=== PATIENT | female | born 1955 | race Caucasian/White ===

== ENCOUNTER 2016-05-16 19:22 | Emergency (ER) | payer OTHER ==
--- NOTE | ~2016-05-16 | EKG ---
PATIENT: FRANCISCO ROBERT UNIT #: [id number] Ventricular Rate: 138 BPM Atrial Rate: 138 BPM P-R Interval: 142 ms QRS Duration: 116 ms Q-T Interval: 296 ms QTC Calculation(Bezet): 448 ms P [place]: 63 degrees Calculated R [place]: 40 degrees Calculated T [place]: 36 degrees Diagnosis Line: Sinus tachycardia with Premature atrial complexes Diagnosis Line: Right bundle branch block with repolarization Diagnosis Line: abnormality Diagnosis Line: Abnormal ECG Diagnosis Line: When compared with ECG of 23-MAY-2012 17:52, Diagnosis Line: Premature atrial complexes are now Present Diagnosis Line: Vent. rate has increased BY 55 BPM Diagnosis Line: QRS duration has decreased Diagnosis Line: Minimal criteria for Inferior infarct are no Diagnosis Line: longer Present Diagnosis Line: T wave inversion now evident in Anterior leads Diagnosis Line: Confirmed by DEVI STOVER MD ([id number]) on 05/27/2016 Diagnosis Line: 7:56:49 PM INTERPRETING MD: JOLANTA PINO
--- NOTE | ~2016-05-16 | CT2 ---
[facility]. [place] A Service of [facility] & [facility] RADIOLOGY TEXT RESULTS PATIENT: FRANCISCO ROBERT LOCATION: SED : 55 UNIT #: [id number] AGE: [address]: Lance Drew MD SEX: F ORDER DR: [id number] [address] [address] [id number] E MR#: [id number] #: [id number] NAME: FRANCISCO ROBERT : 1955 SEX: F STUDY DATE/TIME: 05/16/2016 21:31 UNIT: SED ROOM: STUDY DESCRIPTION: CT Abd and Pelv W Cont Attending Physician: Lance Drew M.D. Ordering Physician: Lance Drew M.D. Primary Care Physician: Princess Cruz M.D. MEDICAL IMAGING REPORT This report is preliminary unless electronic signature is present. EXAM CT abdomen and pelvis, 05/16/1916. HISTORY fever, vomiting, generalized pain onset today. TECHNIQUE This ct exam was performed with one or more of the following radiation dose reduction techniques: automatic exposure control, adjustment of ma and/or kv according to patient size, and iterative reconstruction. CT abdomen and pelvis performed with intravenous administration of 100 mL Isovue 370. COMPARISON STUDIES Noncontrast enhanced examination 05/23/2012. FINDINGS The lung bases are clear. Mild cardiac enlargement. Stable. Fatty infiltration of the liver stable. Liver is mildly enlarged measuring 19.3 cm in craniocaudal extent not significantly changed from prior study. No focal parenchymal abnormalities seen. Post cholecystectomy with no biliary ductal obstruction. Spleen, pancreas, left adrenal gland unremarkable. 1.3 cm indeterminate nodule right adrenal body. Relatively low in visible low-density but not meeting CT criteria for adenoma. Appears larger than on the prior study. Best further evaluated with MRI or adrenal protocol CT. Kidneys and ureters unremarkable. Urinary bladder, uterus adnexal regions unremarkable. CT Pelvis: No inguinal adenopathy. No pelvic fluid collections. No pelvic adenopathy or retroperitoneal adenopathy. Small portal nodes are stable. Distal esophagus unremarkable. [facility] Service of [facility] & [facility] RADIOLOGY TEXT RESULTS PATIENT: FRANCISCO ROBERT LOCATION: SED : 55 UNIT #: [id number] AGE: [address]: Lance Drew MD SEX: F ORDER DR: fluid and food debris. Likely physiologic. Correlate with time course of ingestion. No small bowel dilatation. There is mild prominence of the distal small bowel wall without dilatation. There may be some mild mucosal enhancement. Correlate with any clinical concern for distal small bowel enteritis. This is a questionable finding. Weight should be given the clinical assessment. The appendix is normal. Colon shows uncomplicated sigmoid diverticulosis. Vascular structures unremarkable. There is a pump device implanted over the anterior inferior right flank. The catheter extends posteriorly. Catheter appears to be radiographically intact. It enters the spinal canal at the T12 - L1 level and extends cephalad. Cephalad termination not visualized. The bony structures show pronounced degenerative change at the L2 - L3 intervertebral disc level markedly different than in May 2012. There is disc space narrowing. Irregularity of the flanking L2 and L3 endplates, associated sclerotic change. Posterior disc osteophyte complex with mild mass effect on thecal sac. I do not see paraspinal fluid collection or inflammatory change of an acute appearance but the changes at L2 - L3 or marked and concerning for age indeterminant diskitis. Please correlate clinically. Consider assessment with MRI if the patient is a candidate. No other suspicious bony findings are seen. The patient has a subcutaneous soft tissue density nodule in the right inferior pelvic wall measuring about 1.4 cm in diameter not seen on prior examination. This may represent some form of inclusion cyst. In the appropriate clinical context it could reflect site of medicine administration. Correlate clinically. I see no associated inflammatory change, subcutaneous air or soft tissue defect. IMPRESSION 1. There is no small bowel dilatation or evidence of obstruction. There is questionable mild wall prominence in the distal ileum with some questionable mural enhancement. These findings are subtle but could be a reflection of mild distal ileitis. Correlate clinically. Weight should be given the clinical assessment. Remainder small bowel unremarkable. Appendix normal. Colon shows only uncomplicated sigmoid diverticulosis. 2. Abnormal appearance of the lumbar spine. Compared to May 2012, the patient has developed severe degenerative change at the L2 - L3 level with marked intervertebral disc space narrowing, endplate irregularity and subcortical bone sclerotic change. These findings are all new compared to 2013. See complete discussion above. The appearance is concerning for diskitis of unknown chronicity. Correlate with the patient's history and clinical examination. Consider assessment with MRI if the patient is a candidate. 3. Right lower quadrant pump device with intrathecal catheter entering spinal canal at T12-L1 level and extending cephalad. Termination not visualized. 4. Fatty infiltration of liver. Stable mild hepatomegaly. 5. Post cholecystectomy. 6. Pancreas, kidneys unremarkable. Uterus and adnexal regions unremarkable. [facility]. [place] A Service of [facility] RADIOLOGY TEXT RESULTS PATIENT: FRANCISCO ROBERT [place] [facility] [place] 55 [place]IT #: [id number] AGE: [address]: Lance Drew MD SEX: F ORDER DR: Dictated by... Bennie Cao M.D. THIS IS AN ELECTRONICALLY VERIFIED REPORT Bennie Cao M.D. at 05/19/2016 6:09 PM Rick TD: 05/17/2016 15:57 JOB #: [id number] MEDICAL IMAGING REPORT Page 1 of 1
--- NOTE | ~2016-05-16 | CR72 ---
[facility] A Service of [facility] RADIOLOGY TEXT RESULTS PATIENT: FRANCISCO ROBERT LOCATION: SED : 55 UNIT #: [id number] AGE: [address]: Lance Drew MD SEX: F ORDER DR: [id number] [place] [id number] E MR#: [id number] Acc #: [id number] NAME: FRANCISCO ROBERT : 1955 SEX: F STUDY DATE/TIME: 05/16/2016 19:38 UNIT: SED ROOM: STUDY DESCRIPTION: CR Chest Single View Portable Attending Physician: Lance Drew M.D. Ordering Physician: Lance Drew M.D. Primary Care Physician: Princess Cruz M.D. MEDICAL IMAGING REPORT This report is preliminary unless electronic signature is present. EXAM AP radiograph of the chest 05/16/2016 HISTORY Chest pain. Onset few hours. Prior history of COPD and high blood pressure. TECHNIQUE AP radiograph of the chest was presented. COMPARISON 09/01/2015. FINDINGS Mild cardiac enlargement. This appears slightly less pronounced than on prior study. Lungs well-inflated. No indication of acute pulmonary disease, pleural effusion, or pneumothorax. No suspicious nodule. The bony structures are unremarkable. Dictated by... Bennie Cao M.D. THIS IS AN ELECTRONICALLY VERIFIED REPORT Bennie Cao M.D. at 05/19/2016 6:09 PM SHANA/taylor TD: 05/17/2016 15:02 JOB #: [id number] MEDICAL IMAGING REPORT [facility] A Service [facility] RADIOLOGY TEXT RESULTS PATIENT: FRANCISCO ROBERT LOCATION: SED : 55 UNIT #: [id number] AGE: [address]: Lance Drew MD SEX: F ORDER DR: Page 1 of 1
[~2016-05-16 19:22] MED LIST: ALBUTEROL17 GM INH; ALPRAZOLAM; ALPRAZOLAM PO; AMBIEN; AMBIEN CR PO; AMBIEN CR12.5 MG/BL PO; AMBIEN PO; AMOXICILLIN500 M1 PO; APEDRA SQ; APIDRA (NF100 UNITS/ SUBQ; APIDRA SUBQ; ARIXTRA2.5 MG/0.5 INJ; ARTHROTEC 751 TAB.EC PO; AUGMENTIN PO; AVANDIA PO; BUMEX; BUMEX PO; BUMEX2 MG PO; BYSTOLIC2.5 MG PO; CELEBREX; CELEXA; CLEOCIN PO; DIET PILL PO; DILAUDID IVP; DURAGESIC; EFFEXOR PO; EFFEXOR XR PO; EFFEXOR-XR150 MG PO; FISH OIL 1,0001 CAP PO; FLEXERIL10 MG PO; GLUCOTROL XL; GLUCOTROL XL PO; HUMULIN 70/30 V10 ML; HUMULIN R100 U/ML; INDOMETHACIN75 MG PO; INSULIN; JANUVIA PO; K-DUR10 MEQ PO; K-DUR20 ME1 PO; KCL; KCL PO; KLOR-CON; LANOXIN; LANTUS100 U/M1 SQ; LANTUS100 U/M1 SUBQ; LANTUS100 U/ML SQ; LANTUS100 U/ML SUBQ; LANTUS100 UNITS/ SUBQ; LASIX; LASIX PO; LASIX20 MG PO; LEVAQUIN PO; LEXAPRO PO; LISINOPRIL; LORCET 10/650 T1 TAB; LORTAB 10/500 T1 TAB; LORTAB 10/500 T1 TAB PO; LOVAZA1 G PO; LUNESTA PO; LYRICA; LYRICA PO; MAG-OXIDE400 MG PO; MEDROL DOSEPAK4 MG PO; METFORMIN; METFORMIN PO; MICARDIS HCT 801 TAB PO; MICARDIS HCT PO; MS CONTIN PO; MYCARDIS PO; NAPROXEN 375 MG; NAPROXEN PO; NEURONTIN; NEURONTIN PO; NOVALOG SUBQ; NOVOLIN 70/30 V10 ML; NOVOLIN 70/30 V10 ML INJ; NOVOLIN 70/30 V10 ML SQ; NOVOLIN 70/30 V10 ML SUBQ; NOVOLIN R100 U/ML; NOVOLOG; NOVOLOG100 U/M1; NOVOLOG100 U/ML INJ; NOVOLOG100 U/ML SUBQ; NOVOLOG100 UNITS/ SUBQ; ORUDIS75 M1 PO; OXYCONTIN; OXYCONTIN PO; OXYCONTIN30 MG PO; OXYGEN; PERCOCET 10/3251 TAB PO; PERCOCET10 PO; PHENERGAN; PHENERGAN PO; PHENERGAN PR; PREVACID; PRILOSEC; PRILOSEC PO; PROMETHAZINE HC25 MG PO; PROMETRIUM; PROTONIX PO; REGLAN; REGLAN PO; SAVELLA50 MG PO; SEROQUEL XR150 MG PO; SOMA PO; SPIRIVA18 MCG; SPIRIVA18 MCG INH; SYMBICORT; SYMBICORT INH; TOPROL XL; TRICOR; TRICOR PO; ULTRAM PO; VICODIN 5/500 T1 TAB PO; VISTARIL PO; VIT B-12 IM; VITAMIN B-1000 MCG/1 IJ; XANAX1 MG PO; ZANAFLEX PO; ZAROXOLYN5 MG PO; ZEMPLAR1 MCG PO; ZYRTEC10 M3 PO
[2016-05-16 19:42] LABS: INFLUENZA A NEG (NEG); INFLUENZA B NEG (NEG)
[2016-05-16 19:45] LABS: POC - CKMB 1.5 ng/mL (0.0-7.9); POC - MYOGLOBIN 75.6 ng/mL (0.0-169.0); POC - TROPONIN <0.05 ng/mL (<=0.05)
[2016-05-16 19:54] LABS: BASOPHIL# 0.1 X10e3 (0-0.3); BASOPHIL% 0.8 % (0-2.5); EOSINOPHIL# 0.1 X10e3 (0-0.7); EOSINOPHIL% 1.7 % (0.0-7.0); HEMATOCRIT 37.6 % (35.0-45.0); HEMOGLOBIN 12.7 gm/dL (12.0-16.0); LYMPHOCYTE% 13.4 % (17.0-45.0); MEAN CELL VOLUME 84.4 FL (83-96); MEAN CORPUSCULAR HEMOGLOBIN 28.6 PG (28-34); MEAN CORPUSCULAR HGB CONC 33.9 g/dL (30-36); MONOCYTE# 0.4 X10e3 (0-1.0); MONOCYTE% 4.9 % (3.0-12.0); NEUTROPHIL# 5.8 X10e3 (1.5-7.1); NEUTROPHIL% 79.2 % (40-75); PLATELET COUNT 143 X10e3 (140-420); RED BLOOD COUNT 4.46 X10e (3.90-5.30); RED CELL DISTRIBUTION WIDTH 14.1 % (11.0-15.5); WHITE BLOOD COUNT 7.3 X10e3 (4.0-10.5)
[2016-05-16 19:59] LABS: DIFF IND NO
[2016-05-16 20:09] LABS: ALBUMIN SERUM 3.8 g/dL (3.5-5.0); BILIRUBIN, DIRECT 0.1 mg/dL (0.0-0.2); BILIRUBIN,INDIRECT 0.4 mg/dL (0.0-0.9); BILIRUBIN,TOTAL 0.5 mg/dL (0.2-2.0); CALCIUM SERUM 8.8 mg/dL (8.4-10.2); GLOM FILT RATE Estimated 61.2 mL/min (>60); POTASSIUM 3.9 mmol/L (3.5-5.1); PROTEIN TOTAL SERUM 4.4 g/dL (6.0-8.3)
[2016-05-16 20:53] LABS: URINE SOURCE CLEAN CATCH
[2016-05-16 20:58] LABS: URINE APPEARANCE CLEAR; URINE BILIRUBIN NEG (NEG); URINE BLOOD TRACE-INTACT (NEG); URINE COLOR YELLOW; URINE GLUCOSE 300 MG/DL (NORM); URINE KETONE NEG (NEG); URINE LEUKOCYTE ESTERASE NEG (NEG); URINE NITRATE NEG (NEG); URINE PH 5.5 (5-8); URINE PROTEIN TRACE (NEG); URINE UROBILINOGEN 0.2 MG/DL (NORM)
[2016-05-16 21:03] LABS: MICRO INDICATED? YES
[2016-05-16 21:06] LABS: URINE BACTERIA 1+ (NEG); URINE MUCUS PRESENT; URINE SQUAMOUS EPITHELIAL CELL FEW /[HPF]; URINE YEAST PRESENT
[2016-05-16 21:43] LABS: POC - CKMB <1.0 ng/mL (0.0-7.9); POC - MYOGLOBIN 54.9 ng/mL (0.0-169.0)
[2016-05-16 21:44] LABS: POC - TROPONIN <0.05 ng/mL (<=0.05)
[2016-05-17] MEDS ORDERED: CRESTOR PO (12:31)
[2016-05-17] MEDS ORDERED: BYSTOLIC (12:31)
[2016-05-17] MEDS ORDERED: BENTYL10 M1 PO (12:31)
[2016-05-17] MEDS ORDERED: ALPRAZOLAM1 MG PO (12:31)
[2016-05-17] MEDS ORDERED: PERCOCET PO (12:31)
[2016-05-17] MEDS ORDERED: LANTUS100 U/ML SUBQ (12:32)
[2016-05-17] MEDS ORDERED: NOVALOG INSULIN (12:32)
== END 2016-05-17 15:48 ==
LOC: SED 19:22
PROVIDERS: Emergency Medicine
DX: B34.9 Viral infection, unspecified (principal); K52.9 Noninfective gastroenteritis and colitis, unspecified; E11.65 Type 2 diabetes mellitus with hyperglycemia; F41.9 Anxiety disorder, unspecified; Z90.49 Acquired absence of other specified parts of digestive tract; Z98.890 Other specified postprocedural states; Z88.5 Allergy status to narcotic agent
CPT/HCPCS: 71010; 74177; 80048; 80076; 81003; 82010; 82553; 82947; 83605; 83874; 83880; 84484; 85025; 87040; 87804; 93005; 96361; 96374; 96375; 99291; J1170; J1956; J2060; J2405; Q9967